=== PATIENT | female | born 1980 | race Two or more races ===

== ENCOUNTER 2017-07-08 15:34 | Emergency (ER) | payer MEDICAID, OTHER ==
[~2017-07-08] VITALS: Ht 152.4 cm; Wt 93.7 kg
[2017-07-08 15:36] VITALS: BP 127/88
== END 2017-07-08 16:26 | disposition home or self-care (01) ==
LOC: ED 16:15
DX: J02.8 Acute pharyngitis due to other specified organisms (principal); B97.89 Other viral agents as the cause of diseases classified elsewhere
CPT/HCPCS: 71046; 87081; 87880; 99285